=== PATIENT | male | born 1990 | race Caucasian/White ===

== ENCOUNTER 2019-11-13 09:29 | Emergency (ER) | payer SELFPAY ==
[~2019-11-13] VITALS: Ht 172.7 cm; Wt 78.0 kg
[2019-11-13 09:34] VITALS: BP 128/80
[2019-11-13] MEDS ORDERED: LIDOCAINE-MPF 1%, 5ML ONE (09:58)
[2019-11-13] MEDS ORDERED: DIPH,PERTUSS(ACELL),TET VAC/PF 0.5 ML IM-VACC ONE ×2 (09:59→10:00)
[2019-11-13] MEDS ORDERED: LIDOCAINE-MPF 1%, 5ML INFIL ONE (10:00)
== END 2019-11-13 11:21 | disposition home or self-care (01) ==
LOC: ED 10:56
DX: S01.112A Laceration without foreign body of left eyelid and periocular area, initial encounter (principal); S09.90XA Unspecified injury of head, initial encounter; X58.XXXA Exposure to other specified factors, initial encounter; Y93.89 Activity, other specified; Y92.89 Other specified places as the place of occurrence of the external cause; Y99.8 Other external cause status
CPT/HCPCS: 12051; 90471; 90715; 99284